=== PATIENT | male | born 1970 | race Caucasian/White ===

== ENCOUNTER 2018-06-17 23:19 | Emergency (ER) | END 2018-06-18 01:47 | disposition home or self-care (01) ==

== ENCOUNTER 2018-07-01 20:34 | Emergency (ER) | END 2018-07-02 00:29 | disposition home or self-care (01) ==

== ENCOUNTER 2018-12-07 18:31 | Emergency (ER) | payer OTHER ==
[~2018-12-07] VITALS: Wt 79.5 kg
[~2018-12-07 18:31] MED LIST: CLIN300C10 PO; HYDR-3498 PO; IBUP-1542 PO; IBUP-1561 PO; NAPR-985 PO; TRAM50TA2 PO; VIGA BOTH EYES
[2018-12-07] MEDS ORDERED: FLUORESCEIN STRIP BOTH EYES ONE (21:30)
[2018-12-07] MEDS ORDERED: CIPROFLOXACIN 0.3% 2.5 ML OPH BOTH EYES ONE (21:30)
[2018-12-07] MEDS ORDERED: DEXAMETHASONE 10 MG/ML 1 ML INJ IM ONE (21:30)
[2018-12-07] MEDS ORDERED: FLUORESCEIN STRIP LEFT EYE ONE (21:30)
[2018-12-07] MEDS ORDERED: HYDR-4011 PO (21:45)
[2018-12-07] MEDS ORDERED: OFLO5DRO46 BOTH EYES (21:53)
[2018-12-07 22:00] VITALS: BP 124/81; PULSE 93; RESP 18
--- NOTE | 2018-12-08 18:09 | ERD ---
ER Documentation Chief Complaint Chief Complaint photophobia, bilat eye pains since AM, vision WNL: hx eye infx wsimilar sx. HPI This is a 48 year old M with past medical history of diabetes who presents to the ED complaining of gradually worsening bilateral eye pain and redness, left greater than right, since this morning. Pt reports associating tearing and photophobia. He denies any trauma, foreign body sensation, changes in vision or purulent discharge. He states he had these same symptoms about 8 years ago which improved status post pain medication and abx eye drops. He used to wear contacts but has not worn any over 5 years. He is currently awaiting referral to see an mayonnaise mixer next week. Denies any nausea, vomiting, headache or any other symptoms. ROS All systems reviewed and are negative except as per history of present illness. Medications Home Meds Active Scripts Ofloxacin* (Ocuflox*) 0.3%-5 Ml Ophth Drops, 1 DROP BOTH EYES QID for 7 Days, BOTTLE Prov:ABHILASH SANON PA-C 12/07/18 Hydrocodone/Acetaminophen ([place] 5-325 Tablet) 1 Each Tablet, 1 TAB PO Q6H PRN for PAIN, #7 TAB Prov:ABHILASH SANON PA-C 12/07/18 Naproxen* (Naprosyn*) 500 Mg Tablet, 500 MG PO BID PRN for PAIN AND/OR INFLAMMATION, #30 TAB Prov:SHARONDA SOL PA-C 07/02/18 Tramadol HCl (Tramadol HCl) 50 Mg Tablet, 50 MG PO Q6 PRN for SEVERE PAIN LEVEL 7-10, #20 TAB Prov:BRENDA MORA NP 06/18/18 Clindamycin Hcl* (Clindamycin Hcl*) 300 Mg Capsule, 300 MG PO TID for 7 Days, CAP Prov:BRENDA MORA NP 06/18/18 Ibuprofen* (Motrin*) 600 Mg Tab, 600 MG PO Q6H PRN for PAIN AND OR ELEVATED TEMP, #30 TAB Prov:BRENDA MORA NP 06/18/18 Ibuprofen* (Motrin*) 400 Mg Tab, 400 MG PO Q6H PRN for PAIN AND OR ELEVATED TEMP, #30 TAB Prov:CUISIABRENDA NP 07/08/16 Moxifloxacin Hcl* (Vigamox*) 0.5% - 3 Ml Opht, 1 DROP BOTH EYES TID for 7 Days, EA Prov:MORGANBRENDA NP 05/11/16 Hydrocodone Bit-Acetaminophen* ([place]*) 5-325 Mg Tab, 1 TAB PO Q6 PRN for PAIN, #20 TAB Prov:FREDDIEBRENDA JACKSON NP 05/11/16 Ibuprofen* (Motrin*) 600 Mg Tab, 600 MG PO Q6H PRN for PAIN AND OR ELEVATED TEMP, #30 TAB Prov:MELANIEBRENDA REYES NP 05/11/16 Reported Medications [none] Unknown Strength No Conflict Check 05/11/16 Allergies Allergies: Coded Allergies: Penicillins (Verified Allergy, Unknown, 04/19/11) PMhx/Soc History of Surgery: No Anesthesia Reaction: No Hx Neurological Disorder: No Hx Respiratory Disorders: No Hx Cardiac Disorders: No Hx Psychiatric Problems: No Hx Miscellaneous Medical Probl: Yes (DM II) Hx Alcohol Use: No Hx Substance Use: No Hx Tobacco Use: Yes (15 CIG/DAY) Smoking Status: Current every day smoker Physical Exam Vitals Vital Signs Date Temp Pulse Resp B/P (MAP) Pulse Ox O2 O2 Flow FiO2 Time Delivery Rate 12/07/18 98.0 93 18 124/81 96 Room Air 22:00 (95) 12/07/18 100.0 88 22 140/83 97 18:44 (102) Physical Exam Const: No acute distress Head: Atraumatic Eye exam w/ rosen lamp: Visual Hernández: Intact in all 4 quadrants Lac ducts/glands No swelling Lids w/ evertion Normal, no foreign body Conjunctiva/conrea + Bilateral conjunctival injection. Subconjunctival hemorrhage noted on the right eye. No corneal abrasion or ulcers seen on fluorescein staining. Anterior Chamber: Clear Tonopen readings: + 20 on left eye, 18 on right eye ENT: Normal External Ears, Nose and Mouth. Neck: Full range of motion. No meningismus. Skin: No petechiae or rashes Neur: Awake and alert Psych: Normal Mood and Affect Results 24 hrs Current Medications Medications Dose Sig/Maciel Start Time Status Last (Trade) Ordered Route PRN Stop Time Admin Dose Reason Admin Fluorescein 1 strip ONCE ONCE 12/07/18 DC Sodium BOTH EYES 21:30 3 ([id number] 21:31 p) Fluorescein 1 strip ONCE ONCE 12/07/18 DC Sodium LEFT EYE 21:30 3 ([id number] 21:31 p) 10 mg ONCE ONCE 12/07/18 DC 12/07/18 Dexamethasone IM 21:30 12/07/18 21:39 (Decadron) 21:31 2 drop ONCE ONCE 12/07/18 DC 12/07/18 Ciprofloxacin BOTH EYES 21:30 12/07/18 21:44 HCl 21:31 (Ciloxan 0.3% Oph) Procedures/MDM Pt is a 48 year old M with hx of diabetes who presents with atraumatic eye pain and redness, most likely iritis versus infection or irritation. There are no signs of a foreign body or corneal abrasions as above. Patient has referral to an mayonnaise mixer through his PCP. He was given steroids and Cipro ophthalmic abx drops here in the ED and discharged with a prescription for same along with [place] for pain. Pt was advised to follow up with his mayonnaise mixer as planned, otherwise return to the ED for any new or worsening symptoms. At this time, patient has full ROM of his EOMI without any pain or surrounding erythema. I have low clinical suspicion for orbital cellulitis, herpes zoster, herpes keratitis, ruptured glove, retinal detachment, acute angle closure glaucoma or deep space infection. Departure Diagnosis: Primary Impression: Pain in eye Laterality: bilateral Qualified Codes: H57.13 - Ocular pain, bilateral Condition: Stable Patient Instructions: Iritis Referrals: [facility] Hours: Mon - Fri 9:00 AM - 5:00 PM Additional Instructions: Please see your primary care provider for referral to an mayonnaise mixer. Take the antibiotics and pain medication as prescribed. Return for any new or worsening symptoms. ABHILASH SANON PA-C Dec 08, 2018 18:09
== END 2018-12-07 22:02 | disposition home or self-care (01) ==
LOC: FTE 18:31
DX: H57.13 Ocular pain, bilateral (principal); E11.9 Type 2 diabetes mellitus without complications; F17.210 Nicotine dependence, cigarettes, uncomplicated
CPT/HCPCS: 96372; J1100; Z7502; Z7610